=== PATIENT | male | born 1950 | race Caucasian/White ===

== ENCOUNTER → 2016-07-03 | Outpatient (CLI) | payer MEDICARE ==
[2016-07-03 10:48] LABS: BASOPHIL # 0.1 K/uL (0.0-0.2); BASOPHIL % 0.4 %; EOSINOPHIL % 0.3 %; HEMATOCRIT 36.4 % (37.0-53.0); HEMOGLOBIN 11.3 g/dL (11.0-16.0); IMMATURE GRANULOCYTE # 0.1 K/uL (0.0-0.3); IMMATURE GRANULOCYTE % 0.8 %; LYMPHOCYTE # 1.1 K/uL (0.8-4.0); LYMPHOCYTE % 9.1 %; MCH 32.7 pg (27.0-34.0); MONOCYTE # 0.9 K/uL (0.0-1.0); MONOCYTE % 7.6 %; MPV 10.8 fl (9.4-12.4); NEUTROPHIL # (ANC) 9.4 K/uL (1.4-9.0); NEUTROPHIL % 81.8 %; NRBC % 0 /100WBC (0-0.00); RBC 3.46 M/uL (3.50-5.50); WBC 11.5 K/uL (4.0-11.0)
[2016-07-03 10:52] LABS: MCV 105.2 fl (83.0-98.0); PLATELET COUNT 368 K/uL (150-450); RDW-CV 22.8 % (11.9-14.6)
[2016-07-03 11:00] LABS: ALBUMIN 3.5 gm/dL (3.5-5.0); ANION GAP 14.3 (10.0-19.0); CALCIUM 8.9 mg/dL (8.5-10.5); CREATININE 1.4 mg/dL (0.6-1.3); MAGNESIUM 1.6 mg/dL (1.3-2.6); POTASSIUM 4.3 mMol/L (3.7-5.1); TOTAL PROTEIN 7.2 g/dL (6.0-8.4)
[2016-07-03 11:02] LABS: TOTAL BILIRUBIN 0.3 mg/dL (0.0-1.5)
== END | disposition disaster alternative care site (69) ==
LOC: LHHCN 10:38
PROVIDERS: Internal Medicine Interventional Cardiology
DX: Z48.21 Encounter for aftercare following heart transplant (principal)

== ENCOUNTER → 2016-07-10 | Outpatient (CLI) | payer MEDICARE ==
[2016-07-10 11:17] LABS: BASOPHIL % 0.5 %; EOSINOPHIL % 0.5 %; HEMATOCRIT 34.5 % (37.0-53.0); HEMOGLOBIN 10.9 g/dL (11.0-16.0); IMMATURE GRANULOCYTE # 0.1 K/uL (0.0-0.3); IMMATURE GRANULOCYTE % 1.3 %; LYMPHOCYTE # 0.8 K/uL (0.8-4.0); MCH 32.8 pg (27.0-34.0); MCHC 31.6 gm/dL (32.0-36.5); MCV 103.9 fl (83.0-98.0); MONOCYTE # 0.7 K/uL (0.0-1.0); MONOCYTE % 7.5 %; MPV 10.9 fl (9.4-12.4); NEUTROPHIL # (ANC) 7.1 K/uL (1.4-9.0); NEUTROPHIL % 81.2 %; NRBC % 0 /100WBC (0-0.00); PLATELET COUNT 348 K/uL (150-450); RBC 3.32 M/uL (3.50-5.50); WBC 8.7 K/uL (4.0-11.0)
[2016-07-10 11:19] LABS: RDW-CV 20.1 % (11.9-14.6)
[2016-07-10 11:30] LABS: ALBUMIN 3.3 gm/dL (3.5-5.0); ANION GAP 12.9 (10.0-19.0); CALCIUM 9.1 mg/dL (8.5-10.5); CREATININE 1.2 mg/dL (0.6-1.3); MAGNESIUM 1.7 mg/dL (1.8-2.6); POTASSIUM 3.9 mMol/L (3.7-5.1); TOTAL BILIRUBIN 0.3 mg/dL (0.0-1.5); TOTAL PROTEIN 6.7 g/dL (6.0-8.4)
== END ==
LOC: LHHCN 10:58
PROVIDERS: Internal Medicine Interventional Cardiology
DX: Z48.21 Encounter for aftercare following heart transplant (principal)

== ENCOUNTER → 2016-07-17 | Outpatient (CLI) | payer MEDICARE ==
[2016-07-17 10:19] LABS: HEMATOCRIT 37.6 % (37.0-53.0); HEMOGLOBIN 11.8 g/dL (11.0-16.0); MCH 32.8 pg (27.0-34.0); MCHC 31.4 gm/dL (32.0-36.5); MCV 104.4 fl (83.0-98.0); MPV 10.8 fl (9.4-12.4); PLATELET COUNT 396 K/uL (150-450); WBC 9.4 K/uL (4.0-11.0)
[2016-07-17 10:25] LABS: RDW-CV 18.1 % (11.9-14.6)
[2016-07-17 10:31] LABS: ALBUMIN 3.5 gm/dL (3.5-5.0); ANION GAP 16.8 (10.0-19.0); CALCIUM 9.1 mg/dL (8.5-10.5); CREATININE 1.4 mg/dL (0.6-1.3); MAGNESIUM 1.7 mg/dL (1.8-2.6); POTASSIUM 3.8 mMol/L (3.7-5.1); TOTAL BILIRUBIN 0.3 mg/dL (0.0-1.5); TOTAL PROTEIN 7.1 g/dL (6.0-8.4)
[2016-07-17 11:11] LABS: SEGMENTED NEUTROPHIL # 7.3 K/uL (1.4-9.0); SEGMENTED NEUTROPHIL % 78 %
[2016-07-17 11:12] LABS: ABSOLUTE NEUTROPHIL CT (ANC) 7.6 K/uL (1.4-9.0); BANDED NEUTROPHIL # 0.3 K/uL (0.0-0.1); BANDED NEUTROPHILS % 3 %; LYMPHOCYTE # 1.1 K/uL (0.8-4.0); LYMPHOCYTE % 12 %; MONOCYTE # 0.7 K/uL (0.0-1.0)
== END ==
LOC: LHHCN 10:13
PROVIDERS: Internal Medicine Interventional Cardiology
DX: Z48.21 Encounter for aftercare following heart transplant (principal); E87.5 Hyperkalemia; Z92.25 Personal history of immunosuppression therapy